=== PATIENT | male | born 1985 | race Caucasian/White ===

== ENCOUNTER 2017-06-10 08:01 | Emergency (ER) | payer MEDICAID, OTHER ==
[~2017-06-10] VITALS: Ht 157.5 cm; Wt 99.0 kg
[2017-06-10 08:03] VITALS: Ht 157.5 cm; Wt 99.0 kg
[2017-06-10] MEDS ORDERED: ONDANSETRON 4 MG INJ IV STA (08:35)
[2017-06-10] MEDS ORDERED: SOD CHLORIDE 0.9% 1,000 ML IV STA (08:35)
[2017-06-10] MEDS ORDERED: KETOROLAC 30 MG INJ IV STA (08:35)
--- NOTE | 2017-06-10 08:40 | ERD ---
ER Documentation Chief Complaint Date/Time DATE: 06/10/17 TIME: 08:36 Chief Complaint ap with vomiting and diarrhea HPI This is a 31-year-old male with a known history of diabetes mellitus type 2 has not taken any of his medication for the past month, as he states he has not had any symptoms of polyuria or polydipsia and wants to control his diabetes with diet. The patient presents to the emergency department today as he stated at roughly 9 PM he started to develop some nausea and epigastric cramping. At 11: 30 PM the patient had an episode of nonbloody nonbilious emesis. The patient indicates she had 5 episodes of nonbloody nonbilious emesis since that time which was 10 hours prior to arrival. During his 10 hour. He has also had 3 episodes of loose watery stools. The patient indicates his last meal was at 6 PM where he ate hotdogs as his symptoms started roughly 3 hours after the onset of oral intake. He denies any polyuria polydipsia. He has had no fevers or shaking or chills. He does state he has a very sensitive stomach is he has had multiple similar episodes over the past year. He denies any recent travel. He denies any recent hospitalizations or antibiotic usage. He states that the abdominal cramping is just prior to the diarrhea or emesis but also states that he was having a sharp shooting pain in his right upper quadrant that did not radiate to the right lower quadrant or back. There is no alleviating or exacerbating factors to the pain in the right upper quadrant and he does state he has had multiple similar episodes of this pain as stated above over the past year. He denies any frequency urgency or dysuria ROS All systems reviewed and are negative except as per history of present illness. PMhx/Soc History of Surgery: Yes (KNEE, FOOT, ELBOW) Anesthesia Reaction: No Hx Neurological Disorder: Yes Hx Respiratory Disorders: Yes Hx Cardiac Disorders: No Hx Psychiatric Problems: No Hx Miscellaneous Medical Probl: Yes (DM TYPE II) Hx Alcohol Use: No Hx Substance Use: No Hx Tobacco Use: No Smoking Status: Never smoker Physical Exam Vitals Vital Signs Date Time Temp Pulse Resp B/P Pulse Ox O2 Delivery O2 Flow Rate FiO2 06/10/17 08:03 98.5 99 20 142/88 99 Physical Exam Constitutional:Well-developed. Well-nourished. HEENT:Normocephalic. Atraumatic.Pupils were equal round reactive to light. Dry mucous membranes.No tonsillar exudates. Neck: No nuchal rigidity. No lymphadenopathy. No posterior cervical spine tenderness or step-offs. Respiratory: Not using accessory muscles of respiration.Lungs were clear to auscultation bilaterally. No rhonchi. No rales. No wheezing. Cardiovascular: Regular rate regular rhythm.No murmurs. No rubs were appreciated.S1, S2 normal. Distal pulses are palpable 2+ bilaterally. GI: Abdomen was obese so exam is limited due to body habitus. Right upper quadrant tenderness and mild epigastric tenderness. Non Distended. No pulsatile abdominal masses or bruits. No rebound. No guarding. Bowel sounds were present and normal. Muscle skeletal: Full range of motion of both the upper and lower extremities bilaterally.Normal muscle tone.No assymetrical calf tenderness or swelling. Skin: No petechia, no purpura. No lesions on the palms or the soles of the feet. No maculopapular rash. NEURO: Patient was alert, awake, orientated x3.No facial droop. Gait observed and normal with no ataxia.Speech had regular rate and rhythm. No focal neurological deficits. Result Diagram: 06/10/17 0855 06/10/17 0855 Results 24 hrs Laboratory Tests Test 06/10/17 08:55 06/10/17 09:00 White Blood Count 9.710^3/ul Red Blood Count 5.3810^6/ul Hemoglobin 16.0g/dl Hematocrit 47.1% Mean Corpuscular Volume 87.5fl Mean Corpuscular Hemoglobin 29.7pg Mean Corpuscular Hemoglobin Concent 34.0g/dl Red Cell Distribution Width 12.3% Platelet Count 35565^3/UL Mean Platelet Volume 10.0fl Neutrophils % 73.8% Lymphocytes % 14.9% Monocytes % 9.4% Eosinophils % 0.8% Basophils % 0.3% Nucleated Red Blood Cells % 0.0/100WBC Neutrophils # (Manual) 7.210^3/ul Lymphocytes # 1.510^3/ul Monocytes # 0.910^3/ul Eosinophils # 0.110^3/ul Basophils # 0.010^3/ul Nucleated Red Blood Cells # 0.010^3/ul Prothrombin Time 12.8Sec Prothrombin Time Ratio 1.0 INR International Normalized Ratio 0.96 Activated Partial Thromboplast Time 31.5Sec Sodium Level 142mmol/L Potassium Level 4.1mmol/L Chloride Level 97mmol/L Carbon Dioxide Level 26mmol/L Anion Gap 23 Blood Urea Nitrogen 14mg/dl Creatinine 0.77mg/dl Glucose Level 255mg/dl Hemoglobin A1c 10.4% Calcium Level 9.2mg/dl Total Bilirubin 0.5mg/dl Direct Bilirubin 0.00mg/dl Indirect Bilirubin 0.5mg/dl Aspartate Amino Transf (AST/SGOT) 48IU/L Alanine Aminotransferase (ALT/SGPT) 93IU/L Alkaline Phosphatase 94IU/L Total Protein 8.2g/dl Albumin 4.5g/dl Globulin 3.70g/dl Albumin/Globulin Ratio 1.21 Amylase Level 86U/L Lipase 63U/L Bedside Glucose 175mg/dL Current Medications Medications (Trade) Dose Ordered Sig/Mell Route PRN Reason Start Time Stop Time Status Last Admin Dose Admin Sodium Chloride (NS) 1,000 ml @ 1,000 mls/hr Q1H STAT IV 06/10/17 08:35 06/10/17 09:34 DC 06/10/17 09:05 Ondansetron HCl (Zofran Inj) 4 mg ONCE STAT IV 06/10/17 08:35 06/10/17 08:37 DC 06/10/17 09:07 Ketorolac Tromethamine (Toradol) 30 mg ONCE STAT IV 06/10/17 08:35 06/10/17 08:37 DC 06/10/17 09:07 Diphenoxylate HCl/ Atropine (Lomotil) 1 tab ONCE ONCE PO 06/10/17 09:00 06/10/17 09:01 DC 06/10/17 09:25 Procedures/MDM The patient presented to the emergency department with epigastric pain. My differential diagnosis included but was not limited to abdominal aortic aneurysm , choledocholithiasis, gallstone ileus, renal colic, pyelonephritis, pancreatitis, peptic ulcer disease, atypical myocardical infarction, mesenteric ischemia, GERD, pulmonary infarction. The patient was placed on a director of early childhood, continuous pulse oximetry and IV access was established by nursing staff. There was no elevation of LFTs to suggest ductal obstruction, cholangitis, cholecystiitis or hepatitis. The patient also had an ultrasound which showed no evidence of cholelithiasis. I did obtain a hemoglobin A1c which was elevated and the patient's blood glucose was 255 but there is no evidence of ketosis. The patient was given a liter bolus of 0.9 normal saline. I did feel his symptoms likely result of a viral etiology causing the nausea vomiting and diarrhea. He received Toradol for analgesic control. He was also given a tablet of Lomotil. His symptoms have improved and he did state he felt comfortable being discharged home. I provided a prescription of Zofran for the patient to take if needed and instructed him the importance of adhering to his antidiabetic medication. The patient was discharged home in fair condition. They were instructed to return to the emergency department at any time if there was any worsening of their condition. The patient stated they would follow up with their PCP in the next 24-48 hours to initiate a suitable medication regimen under the care of their PCP as well as to allow their PCP to monitor any drug reactions. The patient was discharged home with prescriptions after they gave informed consent to the new medication. They were also fully informed by myself on the adverse effects and adverse drug interactions in order to provide adequate safeguards to prevent possible adverse reactions to medications. Departure Diagnosis: Primary Impression: Nausea & vomiting Vomiting type: unspecified Vomiting Intractability: non-intractable Qualified Code: R11.2 - Non-intractable vomiting with nausea, unspecified vomiting type Additional Impression: Hyperglycemia without ketosis Condition: MARTA Armas Jun 10, 2017 08:40
[2017-06-10] MEDS ORDERED: DIPHENOXYLATE/ATROPINE TAB PO ONE ×2 (09:00→11:00)
[2017-06-10 09:40] LABS: BASOPHILS % 0.3 % (0.0-2.0); EOSINOPHILS # 0.1 10^3/ul (0.0-0.5); EOSINOPHILS % 0.8 % (0.0-7.0); HEMATOCRIT 47.1 % (42.0-52.0); LYMPHOCYTES # 1.5 10^3/ul (0.8-2.9); LYMPHOCYTES % 14.9 % (15.0-51.0); MEAN CORPUSCULAR HEMOGLOBIN 29.7 pg (29.0-33.0); MEAN CORPUSCULAR VOLUME 87.5 fl (82.0-101.0); MONOCYTE # 0.9 10^3/ul (0.3-0.9); MONOCYTES % 9.4 % (0.0-11.0); NEUTROPHILS % 73.8 % (39.0-77.0); PLATELET COUNT 329 10^3/UL (140-415); RED BLOOD COUNT 5.38 10^6/ul (4.70-6.10); RED CELL DISTRIBUTION WIDTH 12.3 % (11.5-14.5); WHITE BLOOD COUNT 9.7 10^3/ul (4.8-10.8)
--- NOTE | 2017-06-10 09:47 | RADRPT ---
PROCEDURE: US Abdomen (right upper quadrant). CLINICAL INDICATION: Pain TECHNIQUE: Multiple real-time longitudinal and transverse images of the right upper quadrant of th e abdomen were acquired utilizing a curved array transducer. Images were reviewed on a high-resoluti on PACS workstation. COMPARISON: None FINDINGS: Liver: Length measures 22.9 cm. Diffusely increased echogenicity, compatible with steatosis. Breanna l hepatopedal flow in the main portal vein. Gallbladder: Normal. No cholelithiasis or gallbladder wall thickening. Biliary tree: No intra or extrahepatic dilatation. Common duct diameter is 4.2 mm. Pancreas: Obscured by bowel gas. Right kidney: Length measures 10.0 cm. No renal mass, calculus, hydronephrosis or perinephric flui d. Abdominal aorta and IVC: Obscured by bowel gas. Additional findings: No free fluid. IMPRESSION: 1. Hepatic steatosis and hepatomegaly are noted. 2. No cholelithiasis or cholecystitis is identified. RPTAT: PP .Gal Barahona MD, MD Date Time Electronically viewed and signed by .Gal Barahona MD, on 06/10/2017 09:47 .R/
[2017-06-10 10:18] LABS: INR 0.96; PROTIME 12.8 Sec (12.2-14.2)
[2017-06-10 10:19] LABS: PARTIAL THROMBOPLASTIN TIME 31.5 Sec (25.0-35.0)
[2017-06-10 10:27] LABS: POTASSIUM 4.1 mmol/L (3.5-5.1)
[2017-06-10 10:28] LABS: ALBUMIN 4.5 g/dl (3.3-4.9); ALBUMIN/GLOBULIN RATIO 1.21; BILIRUBIN,INDIRECT 0.5 mg/dl (0-1.1); BILIRUBIN,TOTAL 0.5 mg/dl (0.2-1.3); CALCIUM 9.2 mg/dl (8.4-10.2); CREATININE 0.77 mg/dl (0.61-1.24); TOTAL PROTEIN 8.2 g/dl (6.1-8.1)
[2017-06-10] MEDS ORDERED: ONDA4TAB14 PO (10:54)
== END 2017-06-10 11:16 | disposition home or self-care (01) ==
LOC: FTE 08:01
DX: R11.2 Nausea with vomiting, unspecified (principal); E11.65 Type 2 diabetes mellitus with hyperglycemia
CPT/HCPCS: 76705; 80053; 82150; 82962; 83036; 83690; 85025; 85610; 85730; 96374; 96375; J1885; J2405; J7030; Z7502; Z7610